=== PATIENT | female | born 1980 | race Caucasian/White ===

== ENCOUNTER 2017-02-17 19:40 | Emergency (ER) | payer MEDICAID ==
[2017-02-17 19:40] VITALS: BMI 31.3
[2017-02-17 19:48] VITALS: TEMP 97.9; O2SAT 100
[2017-02-17] MEDS ORDERED: Albuterol 0.083% Inhal Sol (2.5 mg/3 mL) UD INH STA (20:18)
[2017-02-17] MEDS ORDERED: Albuterol 0.083% Inhal Sol (2.5 mg/3 mL) UD ONE (20:34)
[2017-02-17 20:36] LABS: BASO # 0.1 K/uL (0.0-0.2); BASO % 0.8 % (0.0-2.0); EOS # 0.1 K/uL (0.0-0.7); HEMATOCRIT 35.6 % (34.0-47.0); LYMPH # 2.8 K/uL (1.0-4.3); LYMPH % 31.7 % (20.0-40.0); MEAN CELL VOLUME 87.1 fL (81.0-99.0); MEAN CORPUSCULAR HEMOGLOBIN 29.3 pg (27.0-31.0); MEAN CORPUSCULAR HGB CONC 33.7 g/dL (33.0-37.0); MEAN PLATELET VOLUME 10.4 fL (7.2-11.7); MONO # 0.6 K/uL (0.0-0.8); MONO % 6.7 % (0.0-10.0); RED CELL DISTRIBUTION WIDTH 13.5 % (11.5-14.5); WHITE BLOOD COUNT 8.8 K/uL (4.8-10.8)
[2017-02-17 20:43] LABS: CHLORIDE 100 mmol/L (98-107)
[2017-02-17 20:44] LABS: POTASSIUM 3.4 mmol/L (3.6-5.2); SODIUM 135 mmol/L (132-148)
[2017-02-17 20:46] LABS: BILIRUBIN,TOTAL < 0.1 mg/dL (0.2-1.3); CARBON DIOXIDE 26 mmol/L (22-30); GFR AFRICAN-AMERICAN > 60
[2017-02-17 20:47] LABS: ALB/GLOB RATIO 1.3 (1.0-2.1); ALKALINE PHOSPHATASE 61 U/L (38-126); ALT/SGPT 28 U/L (9-52); AST/SGOT 16 U/L (14-36); BLOOD UREA NITROGEN 14 mg/dL (7-17); CALCIUM 8.7 mg/dl (8.6-10.4); GLUCOSE,RANDOM 107 mg/dL (65-105); TOTAL PROTEIN 7.1 g/dL (6.3-8.3)
--- NOTE | 2017-02-17 21:20 | C.PDOC ---
History Of Present Illness A 36 year old female who denies Hx of SOB, presents to the ER c/o feeling SOB with dry cough and sharp chest pain of the right upper chest starting last night. Patient notes pain continued today and took Tylenol with no relief. Patient denies emotional stress, nausea, vomiting, fever, chills, trauma, or any other complaints. Time Seen by Provider: 02/17/17 20:01 Chief Complaint (Nursing): Shortness Of Breath History Per: Patient History/Exam Limitations: no limitations Onset/Duration Of Symptoms: Days Current Symptoms Are (Timing): Still Present Quality: Sharp (Chest pain) Severity: Mild Associated Symptoms: Productive Cough. denies: Fever, Chills Recent travel outside of the [place]: No Additional History Per: Patient Past Medical History Reviewed: Historical Data, Nursing Documentation, Vital Signs Vital Signs: Last Vital Signs Temp 97.9 F 02/17/17 19:44 Pulse 67 02/17/17 22:22 Resp 17 02/17/17 22:22 BP 118/75 02/17/17 22:22 Pulse Ox 100 02/17/17 22:53 - Medical History PMH: No Chronic Diseases - [facility] Procedures EPISIOTOMY (02/14/15) Family History: States: Unknown Family Hx - Social History Hx Tobacco Use: No Hx Alcohol Use: No Hx Substance Use: No Review Of Systems Except As Marked, All Systems Reviewed And Found Negative. Constitutional: Negative for: Fever, Chills, Other (Trauma) Cardiovascular: Positive for: Chest Pain Respiratory: Positive for: Cough (Dry), Shortness of Breath Gastrointestinal: Negative for: Nausea, Vomiting Neurological: Negative for: Other (Emotional stress) Physical Exam - Physical Exam Appears: Non-toxic, No Acute Distress Skin: Warm, Dry Head: Atraumatic, Normacephalic Oral Mucosa: Moist Cardiovascular: Rhythm Regular, No Murmur Respiratory: Normal Breath Sounds, No Rales, No Rhonchi, No Wheezing Gastrointestinal/Abdominal: Normal Exam, Soft, No Tenderness Neurological/Psych: Oriented x3, Normal Speech, Normal Cognition ED Course And Treatment - Laboratory Results Result Diagrams: 02/17/17 20:32 02/17/17 20:32 ECG Rhythm: Sinus Rhythm (64) ECG Interpretation: Normal O2 Sat by Pulse Oximetry: 100 (RA) Pulse Ox Interpretation: Normal - Radiology CXR: Interpreted by Me CXR Interpretation: Yes: No Acute Disease Medical Decision Making Medical Decision Making: Plans: -EKG -CXR -Albuterol -Toradol -IV fluids -Nebulizer treatment as discussed with pt labs, ekg and cxr unremarkable, no indication of acs pe as cause Pt feeling better post neb, plan treat as niall COOPER, f/u pcp this week Disposition - Disposition Disposition: HOME/ ROUTINE Disposition Time: 22:14 Condition: GOOD Additional Instructions: Follow up with you PCP this week Prescriptions: Albuterol HFA [Ventolin HFA 90 mcg/actuation (8 g)] 1 puff IH QID PRN #1 puff PRN Reason: Cough Inhaler, Assist Devices [Space Chamber Plus] 1 each MC PRN #1 spacer Instructions: Reactive Airways Disease (ED) - Clinical Impression Clinical Impression: Dyspnea - Scribe Statement The provider has reviewed the documentation as recorded by the Scribe Roberto Carlos [email or web address] All medical record entries made by the Scribe were at my direction and personally dictated by me. I have reviewed the chart and agree that the record accurately reflects my personal performance of the history, physical exam, medical decision making, and the department course for this patient. I have also personally directed, reviewed, and agree with the discharge instructions and disposition.
[2017-02-17 22:23] VITALS: BP 118/75; PULSE 67; RESP 17
--- NOTE | 2017-02-18 13:26 | RAD ---
HISTORY: SOB COMPARISON: No prior. TECHNIQUE: Chest PA and lateral FINDINGS: LUNGS: No active pulmonary disease. PLEURA: No significant pleural effusion identified. No pneumothorax apparent. CARDIOVASCULAR: Normal. OSSEOUS STRUCTURES: No significant abnormalities. VISUALIZED UPPER ABDOMEN: Normal. OTHER FINDINGS: None. IMPRESSION: No active disease. Concordant results with the preliminary interpretation rendered by the emergency department physician procedure.
--- NOTE | 2017-02-20 07:41 | CARD ---
APPROVED REPORT EKG Measurement Heart [id number] AR [id number] [id number] <Conclusion> Normal sinus rhythm Normal ECG
== END 2017-02-17 22:22 | disposition home or self-care (01) ==
LOC: C.ER 19:40
DX: R06.00 Dyspnea, unspecified (principal)
CPT/HCPCS: 71020; 80053; 83880; 84484; 85025; 85378; 96374; 99284; J1885

== ENCOUNTER 2017-02-20 08:29 | Emergency (ER) | payer MEDICAID ==
[2017-02-20 08:29] VITALS: BMI 31.3
[2017-02-20 08:50] VITALS: O2SAT 99
--- NOTE | 2017-02-20 09:57 | C.PDOC ---
History Of Present Illness 36 year old female presents to the emergency room with complaints of a sore throat, runny nose, and nonproductive cough for 2 days. Patient also reports feeling shortness of breath at night. Patient was seen in the ED 2 days ago; blood work, EKG, and CXR done and patient discharged home with Albuterol inhaler. Patient has not yet followed up with PMD. She denies fever, chest pain , nausea, vomiting, diarrhea, headache, dysuria/hematuria. Time Seen by Provider: 02/20/17 09:09 Chief Complaint (Nursing): Cough, Cold, Congestion History Per: Patient History/Exam Limitations: no limitations Onset/Duration Of Symptoms: Days (2) Current Symptoms Are (Timing): Still Present Location Of Pain: Throat Sick Contacts (Context): None Associated Symptoms: Sore Throat, Cough. denies: Fever, Chills, Sputum, Nausea , Vomiting, Diarrhea Ear Symptoms: Bilateral: None Severity: Mild Past Medical History Reviewed: Historical Data, Nursing Documentation, Vital Signs Vital Signs: Last Vital Signs Temp 99 F 02/20/17 10:17 Pulse 96 H 02/20/17 10:17 Resp 16 02/20/17 10:17 BP 110/72 02/20/17 10:17 Pulse Ox 99 02/20/17 11:45 - Medical History PMH: No Chronic Diseases - [facility] Procedures EPISIOTOMY (02/14/15) Family History: States: No Known Family Hx - Social History Hx Tobacco Use: No Hx Alcohol Use: No Hx Substance Use: No - Immunization History Hx Tetanus Toxoid Vaccination: No Hx Influenza Vaccination: No Hx Pneumococcal Vaccination: No Review Of Systems Except As Marked, All Systems Reviewed And Found Negative. Constitutional: Negative for: Fever, Chills ENT: Positive for: Nose Discharge (Runny nose), Throat Pain (Sore throat). Negative for: Ear Pain, Nose Congestion Cardiovascular: Negative for: Chest Pain, Palpitations Respiratory: Positive for: Cough. Negative for: Shortness of Breath, Sputum Gastrointestinal: Negative for: Nausea, Vomiting, Abdominal Pain, Diarrhea Neurological: Negative for: Headache, Dizziness Physical Exam - Physical Exam Appears: Well, Non-toxic, Other (Speaks in full sentences. Coughs Occasionally. ) Skin: Normal Color, Warm, Dry, No Rash Eye(s): bilateral: Normal Inspection Ear(s): Bilateral: Normal Nose: Normal, No Discharge, No Tenderness Oral Mucosa: Moist Throat: Erythema (Mild), No Exudate, No Drooling Neck: Normal ROM, Supple Cardiovascular: Rhythm Regular Respiratory: No Rales, No Rhonchi, Wheezing (Scant expiratory wheezing B/L) Gastrointestinal/Abdominal: Normal Exam, Bowel Sounds, Soft, No Tenderness Extremity: Normal ROM, No Tenderness Neurological/Psych: Oriented x3 ED Course And Treatment O2 Sat by Pulse Oximetry: 99 (RA) Pulse Ox Interpretation: Normal Progress Note: Patient given PO Prednisone and Tessalon in ED. Reevaluation Time: 10:00 Reassessment Condition: Improved (On reassessment, patient states she feels better. On exam, she has good air entry B/L without wheezing/accessory muscle use. Pox 99% on RA. Patient given Rxs for prednisone and tessalon, instructed to follow up with PMD/clinic in 1-2 days. She understands she should return to ED if symptoms worsen.) Disposition Counseled Patient/Family Regarding: Diagnosis, Need For Followup, Rx Given - Disposition Referrals: Carly Summers MD [Staff Provider] - Disposition: HOME/ ROUTINE Disposition Time: 10:00 Condition: STABLE Additional Instructions: FOLLOW UP WITH YOUR DOCTOR IN 1-2 DAYS USE MEDICATIONS DIRECTED RETURN TO ER IF SYMPTOMS WORSEN Prescriptions: Benzonatate [Tessalon Perles] 100 mg PO BID PRN #15 sgl PRN Reason: Cough predniSONE [predniSONE Tab] 40 mg PO DAILY #6 tab Instructions: Upper Respiratory Infection (ED), Bronchospasm (DC) Print Language: KISWAHILI - POA Present On Arrival: None - Clinical Impression Clinical Impression: Bronchospasm, Upper respiratory infection - Scribe Statement The provider has reviewed the documentation as recorded by the Gideonibjennifer Brady All medical record entries made by the Gideonibjennifer were at my direction and personally dictated by me. I have reviewed the chart and agree that the record accurately reflects my personal performance of the history, physical exam, medical decision making, and the department course for this patient. I have also personally directed, reviewed, and agree with the discharge instructions and disposition.
[2017-02-20 10:17] VITALS: BP 110/72; PULSE 96; RESP 16; TEMP 99
== END 2017-02-20 10:17 | disposition home or self-care (01) ==
LOC: C.ER 08:29
DX: J98.01 Acute bronchospasm (principal); J06.9 Acute upper respiratory infection, unspecified

== ENCOUNTER 2018-01-17 17:07 | Emergency (ER) | payer MEDICAID ==
[2018-01-17 17:07] VITALS: BMI 31.3
[2018-01-17 17:16] VITALS: BP 123/79; PULSE 79; RESP 20; TEMP 98; O2SAT 100
[2018-01-17] MEDS ORDERED: Naproxen 550 mg Tab PO STA (17:29)
[2018-01-17] MEDS ORDERED: Naproxen 550 mg Tab PO ONE (17:38)
--- NOTE | 2018-01-17 17:52 | C.PDOC ---
History Of Present Illness Patient presents to ED c/o buttock/coccygeal pain after she fell onto her buttocks while going down the stairs approx 3 hrs ago. She denies head injury or LOC, abdominal pain, urinary retention, bowel/bladder incontinence, sensory changes. Patient took 1 ibuprofen 200mg right after the fall. Time Seen by Provider: 01/17/18 17:21 Chief Complaint (Nursing): Back Pain History Per: Patient History/Exam Limitations: no limitations Onset/Duration Of Symptoms: Hrs Current Symptoms Are (Timing): Still Present Quality Of Discomfort: "Pain" Severity: Moderate Associated Symptoms: None. denies: Incontinence, New Weakness, New Numbness Exacerbating Factor(s): Movement Past Medical History Reviewed: Historical Data, Nursing Documentation, Vital Signs Vital Signs: Last Vital Signs Temp 98 F 01/17/18 17:14 Pulse 79 01/17/18 17:14 Resp 20 01/17/18 19:20 BP 123/79 01/17/18 17:14 Pulse Ox 100 01/17/18 18:20 - Medical History PMH: No Chronic Diseases - [facility] Procedures EPISIOTOMY (02/14/15) Family History: States: No Known Family Hx - Social History Hx Tobacco Use: No Hx Alcohol Use: No Hx Substance Use: No - Immunization History Hx Tetanus Toxoid Vaccination: No Hx Influenza Vaccination: No Hx Pneumococcal Vaccination: No Review Of Systems Except As Marked, All Systems Reviewed And Found Negative. Constitutional: Negative for: Fever, Chills Cardiovascular: Negative for: Chest Pain, Palpitations Respiratory: Negative for: Cough, Shortness of Breath Gastrointestinal: Negative for: Nausea, Vomiting, Abdominal Pain, Diarrhea Musculoskeletal: Positive for: Back Pain (low back/coccygeal pain ) Neurological: Negative for: Weakness, Numbness, Headache, Dizziness Physical Exam - Physical Exam Appears: Well, Non-toxic, In Acute Distress (in mild to moderate pain ) Skin: Normal Color, Warm, Dry, No Rash Head: Atraumatic, Normacephalic Eye(s): bilateral: Normal Inspection Oral Mucosa: Moist Neck: Normal, Normal ROM, No Midline Cervical Tenderness, No Paracervical Tenderness, No Step Off Deformity, Supple Cardiovascular: Rhythm Regular Respiratory: Normal Breath Sounds, No Rales, No Rhonchi, No Wheezing Gastrointestinal/Abdominal: Normal Exam, Bowel Sounds, Soft, No Tenderness Back: Normal Inspection, No CVA Tenderness, No Vertebral Tenderness, No Decreased ROM, Other (TTP at coccyx and sacral area, no ecchymosis/swelling/ erthema) Extremity: Normal ROM, No Deformity Extremity: Bilateral: Normal Color And Temperature, Normal ROM Neurological/Psych: Oriented x3, Normal Motor, Normal Sensation Gait: Steady ED Course And Treatment O2 Sat by Pulse Oximetry: 100 (RA) Pulse Ox Interpretation: Normal - Other Rad LS spine Xray X-Ray: Interpreted by Me, Viewed By Me (no fractures/listhesis) sacrum/coccyx Xray X-Ray: Interpreted by Me, Viewed By Me (cocygeal nondisplaced fracture) Progress Note: Patient given PO Naprosyn for pain. Upreg POC ordered and reviewed. Xrays of sacrum/coccyx and LS spine ordered and reviewed. Reevaluation Time: 19:15 Reassessment Condition: Improved (Patient reassessed, is resting comfortably and states pain has improved. Patient given Rxs for Naprosyn and Tylenol #3, and was instructed to buy donut pillow at pharmacy for sitting. She was instructed to follow up with PMD/clinic in 1-2 days, and she understands she should return to ED if her symptoms worsen. Instructions also given to patient 's by phone (due to patient's limited Bengali).) Disposition Counseled Patient/Family Regarding: Studies Performed, Diagnosis, Need For Followup, Rx Given - Disposition Referrals: [facility] [Outside] Disposition: HOME/ ROUTINE Disposition Time: 19:20 Condition: STABLE Additional Instructions: FOLLOW UP WITH YOUR DOCTOR IN 1-2 DAYS USE MEDICATIONS FOR PAIN NEEDED RETURN TO ER IF SYMPTOMS WORSEN BUY DONUT PILLOW CUSHION FOR SITTING AT PHARMACY Prescriptions: Acetaminophen with Codeine [Tylenol with Codeine #3 Tablet] 1 each PO Q6 PRN # 15 tablet PRN Reason: pain Naproxen [Naprosyn] 1 tab PO BID PRN #25 tab PRN Reason: Pain Instructions: Coccyx Fracture (DC) Forms: [employer] (Bengali) Print Language: TURKISH - POA Present On Arrival: None - Clinical Impression Clinical Impression: Fractured coccyx
--- NOTE | 2018-01-17 18:46 | RAD ---
PROCEDURE: Radiographs of the Sacrum and Coccyx HISTORY: coccygeal pain after fall COMPARISON: None available. TECHNIQUE: Frontal and lateral views of the sacrum and coccyx FINDINGS: BONES: Sacrum is unremarkable in views submitted however images of the coccyx reveal questionable cortical discontinuity posteriorly and a nondisplaced fracture is not excluded. SACROILIAC JOINTS: Unremarkable. OTHER FINDINGS: None. IMPRESSION: Potential nondisplaced coccyx fracture with remainder the examination unremarkable.
--- NOTE | 2018-01-17 18:46 | RAD ---
PROCEDURE: Radiographs of the Lumbar Spine. HISTORY: low back pain after fallq COMPARISON: No prior. FINDINGS: BONES: Normal alignment. No listhesis. No fracture. DISC SPACES: Unremarkable. OTHER FINDINGS: Incidental intrauterine device identified within the pelvis soft tissues. IMPRESSION: Unremarkable radiographs of the lumbar spine.
== END 2018-01-17 19:20 | disposition home or self-care (01) ==
LOC: C.ER 17:07
DX: S32.2XXA Fracture of coccyx, initial encounter for closed fracture (principal); W10.9XXA Fall (on) (from) unspecified stairs and steps, initial encounter

== ENCOUNTER 2018-04-23 17:26 | Emergency (ER) | payer MEDICAID ==
[2018-04-23 17:28] VITALS: BMI 31.3
[2018-04-23 18:22] VITALS: RESP 18
[2018-04-23 19:28] LABS: BASO # 0.1 K/uL (0.0-0.2); BASO % 0.9 % (0.0-2.0); EOS # 0.1 K/uL (0.0-0.7); EOS % 1.1 % (0.0-4.0); LYMPH # 2.8 K/uL (1.0-4.3); LYMPH % 25.5 % (20.0-40.0); MEAN CELL VOLUME 83.2 fL (81.0-99.0); MEAN CORPUSCULAR HEMOGLOBIN 27.9 pg (27.0-31.0); MEAN CORPUSCULAR HGB CONC 33.6 g/dL (33.0-37.0); MEAN PLATELET VOLUME 10.4 fL (7.2-11.7); MONO # 0.9 K/uL (0.0-0.8); MONO % 7.7 % (0.0-10.0); NEUT # 7.1 K/uL (1.8-7.0); NEUT % 64.8 % (50.0-75.0); RBC 4.31 Mil/uL (3.80-5.20)
[2018-04-23 19:40] LABS: ALB/GLOB RATIO 1.3 (1.0-2.1); ALBUMIN 4.2 g/dL (3.5-5.0); ALT/SGPT 37 U/L (9-52); AST/SGOT 17 U/L (14-36); BLOOD UREA NITROGEN 14 mg/dL (7-17); GFR AFRICAN-AMERICAN > 60; GFR NON-AFRICAN AMERICAN > 60
[2018-04-23 19:47] LABS: URINE BACTERIA RARE (<OCC); URINE BILIRUBIN NEGATIVE (NEGATIVE); URINE BLOOD NEGATIVE (NEGATIVE); URINE CLARITY Clear (Clear); URINE COLOR Yellow (YELLOW); URINE GLUCOSE (UA) NORMAL (Normal); URINE LEUKOCYTE ESTERASE 2+ Leu/uL (Negative); URINE PROTEIN NEGATIVE (NEGATIVE); URINE UROBILINOGEN NORMAL mg/dL (0.2-1.0)
[2018-04-23 19:49] LABS: SQUAMOUS EPITHIAL 3 /hpf (0-5)
[2018-04-23 19:54] LABS: B-TYPE NATRIURETIC PEPTIDE 36.1 pg/mL (0-450)
[2018-04-23 20:45] VITALS: BP 128/88; PULSE 66; TEMP 98.1; O2SAT 100
--- NOTE | 2018-04-23 21:17 | C.PDOC ---
History Of Present Illness 37 year old female presents to the ER with a complaint of headache, nausea, palpitations, and weakness to the legs after getting some bad news this morning. Denies chest pain, SOB, or Hx of cardiac problems. Time Seen by Provider: 04/23/18 18:49 Chief Complaint (Nursing): Dizziness/Lightheaded History Per: Patient History/Exam Limitations: no limitations Onset/Duration Of Symptoms: Hrs Current Symptoms Are (Timing): Still Present Seizure Or Post-ictal Symptoms: None Fall Associated With With Symptoms: No Recent travel outside of the [place]: No Past Medical History Reviewed: Historical Data, Nursing Documentation, Vital Signs Vital Signs: Last Vital Signs Temp 98.1 F 04/23/18 20:44 Pulse 66 04/23/18 20:44 Resp 18 04/23/18 20:44 BP 128/88 04/23/18 20:44 Pulse Ox 100 04/23/18 21:17 - [facility] Procedures EPISIOTOMY (02/14/15) Family History: States: Unknown Family Hx - Social History Hx Tobacco Use: No Hx Alcohol Use: No Hx Substance Use: No - Immunization History Hx Tetanus Toxoid Vaccination: No Hx Influenza Vaccination: No Hx Pneumococcal Vaccination: No Review Of Systems Constitutional: Positive for: Weakness. Negative for: Fever, Chills Cardiovascular: Positive for: Palpitations. Negative for: Chest Pain Respiratory: Negative for: Cough, Shortness of Breath Gastrointestinal: Positive for: Nausea. Negative for: Vomiting Neurological: Positive for: Headache Physical Exam - Physical Exam Appears: Non-toxic, Other (Obese, female) Skin: Normal Color, Warm, Dry Head: Atraumatic, Normacephalic Eye(s): bilateral: Normal Inspection Oral Mucosa: Moist Neck: Normal, Supple Chest: Symmetrical, No Tenderness Cardiovascular: Rhythm Regular Respiratory: Normal Breath Sounds, No Rales, No Rhonchi, No Wheezing Gastrointestinal/Abdominal: Soft, No Tenderness Back: No CVA Tenderness Extremity: Normal ROM (x4) Neurological/Psych: Oriented x3, Normal Speech ED Course And Treatment - Laboratory Results Result Diagrams: 04/23/18 19:25 04/23/18 19:25 Lab Interpretation: Normal (trop neg. UA neg.) Urine POC: Negative ECG: Interpreted By Me ECG Rhythm: Sinus Rhythm ECG Interpretation: Normal Rate From EC O2 Sat by Pulse Oximetry: 100 Pulse Ox Interpretation: Normal - Radiology CXR: Interpreted by Me CXR Interpretation: Yes: No Acute Disease Progress Note: EKG, blood work, obstructive series, and urinalysis ordered. Pepcid and toradol administered. Reevaluation Time: 21:16 Reassessment Condition: Improved Medical Decision Making Medical Decision Making: emotional reaction to stressor of bad news this morning normal workup Disposition Doctor Will See Patient In The: Office Counseled Patient/Family Regarding: Studies Performed, Diagnosis - Disposition Referrals: [facility] [Outside] [facility] [Outside] [facility] [Outside] Disposition: HOME/ ROUTINE Disposition Time: 21:16 Condition: GOOD Additional Instructions: normal outpatient follow-up in our outpatient psych services as needed. Instructions: Anxiety, Adult (DC) Forms: [employer] (Georgian) - Clinical Impression Clinical Impression: Anxiety - Scribe Statement The provider has reviewed the documentation as recorded by the Scribe Chava Maloney All medical record entries made by the Scribe were at my direction and personally dictated by me. I have reviewed the chart and agree that the record accurately reflects my personal performance of the history, physical exam, medical decision making, and the department course for this patient. I have also personally directed, reviewed, and agree with the discharge instructions and disposition.
--- NOTE | 2018-04-24 10:13 | RAD ---
Date of service: 04/23/2018 PROCEDURE: Radiographs of the chest and abdomen (obstructive series) HISTORY: abd discomfort COMPARISON: No prior. TECHNIQUE: AP radiograph of the chest, with upright and supine radiographs of the abdomen. FINDINGS: CHEST: Lungs: The lungs are well inflated and clear. Cardiovascular: Normal size heart. No pulmonary vascular congestion. Pleura: No pleural fluid. No pneumothorax. Other findings: None. ABDOMEN AND PELVIS: Bowel: There is large amount of stool in the colon. No evidence of mechanical obstruction. Free air: None. Bones: Unremarkable. Other findings: An IUD overlies the pelvis. IMPRESSION: Constipation. No evidence of bowel obstruction. Clear lungs.
--- NOTE | 2018-04-25 12:19 | CARD ---
APPROVED REPORT Date of service: 04/23/2018 EKG Measurement Heart [id number] MA 168P59 [id number] <Conclusion> Normal sinus rhythm with sinus arrhythmia Normal ECG
== END 2018-04-23 21:27 | disposition home or self-care (01) ==
LOC: C.ER 17:26
DX: F41.9 Anxiety disorder, unspecified (principal)
CPT/HCPCS: 74022; 80053; 81001; 83880; 84484; 84703; 85025; 93005; 96374; 96375; 99285; J1885

== ENCOUNTER 2018-06-05 22:35 | Emergency (ER) | payer MEDICAID ==
[2018-06-05 22:36] VITALS: BMI 31.3
[2018-06-06] MEDS ORDERED: Azithromycin 500 MG in Sodium Chloride 0.9% 250 ML IVPB STA (00:14)
[2018-06-06] MEDS ORDERED: Albuterol-Ipratrop 3 mg / 0.5 (3 ml) UD INH STA (00:18)
--- NOTE | 2018-06-06 00:23 | C.PDOC ---
History Of Present Illness 37yo female, comes to ER with complaints of chest pain x 2 days. She also reports right neck and arm pain, radiating to her right shoulder. Patient has a productive cough with green sputum. She denies associated fever, chills, or shortness of breath. No other complaints. Medications reviewed. No allergies. Time Seen by Provider: 06/05/18 22:57 Chief Complaint (Nursing): Chest Pain History Per: Patient History/Exam Limitations: no limitations Onset/Duration Of Symptoms: Days (2) Current Symptoms Are (Timing): Still Present Quality: "Pain" Associated Symptoms: denies: Nausea, Dyspnea, Diaphoresis, Syncope Additional History Per: Patient Past Medical History Reviewed: Historical Data, Nursing Documentation, Vital Signs Vital Signs: Last Vital Signs Temp 98.7 F 06/06/18 01:46 Pulse 74 06/06/18 01:46 Resp 18 06/06/18 01:46 BP 111/74 06/06/18 01:46 Pulse Ox 97 06/06/18 01:55 - Medical History PMH: No Chronic Diseases Surgical History: No Surg Hx - [facility] Procedures EPISIOTOMY (02/14/15) Family History: States: No Known Family Hx - Social History Hx Tobacco Use: No Hx Alcohol Use: No Hx Substance Use: No - Immunization History Hx Tetanus Toxoid Vaccination: No Hx Influenza Vaccination: No Hx Pneumococcal Vaccination: No Review Of Systems Except As Marked, All Systems Reviewed And Found Negative. Constitutional: Negative for: Fever, Chills ENT: Negative for: Ear Pain, Ear Discharge Cardiovascular: Positive for: Chest Pain Respiratory: Positive for: Cough, Sputum. Negative for: Shortness of Breath Gastrointestinal: Negative for: Nausea, Vomiting, Abdominal Pain Genitourinary: Negative for: Dysuria Musculoskeletal: Positive for: Shoulder Pain (right), Arm Pain (right). Negative for: Back Pain Neurological: Negative for: Weakness, Numbness Physical Exam - Physical Exam Appears: Non-toxic, No Acute Distress Skin: Normal Color, Warm Head: Atraumatic, Normacephalic Eye(s): bilateral: Normal Inspection, PERRL, EOMI Nose: Normal Tongue: Normal Appearing Lips: Normal Appearing Teeth: Normal Dentition Neck: Normal, Supple Chest: Symmetrical Cardiovascular: Rhythm Regular Respiratory: Wheezing (expiratory) Gastrointestinal/Abdominal: Normal Exam, Soft Back: Normal Inspection, No CVA Tenderness, No Vertebral Tenderness, No Paraspinal Tenderness Extremity: Normal ROM, No Pedal Edema, No Calf Tenderness Neurological/Psych: Oriented x3, Normal Speech, Normal Cognition, Normal Motor, Normal Sensation ED Course And Treatment - Laboratory Results Result Diagrams: 06/06/18 00:26 06/06/18 00:26 ECG: Interpreted By Me, Viewed By Me ECG Rhythm: Sinus Rhythm Interpretation Of ECG: CO 170. QRS 84. QT/QTc 376/417. No ischemic changes Rate From EC O2 Sat by Pulse Oximetry: 97 (RA) Pulse Ox Interpretation: Normal Medical Decision Making Medical Decision Making: Plan: * Labs * CXR * Duoneb 6ml INH * Solumedrol 125mg IVP * Zithromax 500mg IVPB 0055 CXR shows retrocardiac fullness No infiltrates Disposition Counseled Patient/Family Regarding: Diagnosis - Disposition Referrals: [facility] [place] [facility] [Outside] [facility] [Outside] [facility] [Outside] Disposition: HOME/ ROUTINE Disposition Time: 01:54 Condition: GOOD Prescriptions: Albuterol HFA [Ventolin HFA 90 mcg/actuation (8 g)] 2 puff IH [id number] 30 Days # 1 puff Azithromycin 250 mg PO DAILY 4 Days #4 tablet predniSONE [predniSONE Tab] 60 mg PO DAILY 5 Days #15 tab Forms: [employer] (Bahamian) - Clinical Impression Clinical Impression: Pleuritic pain, Bronchitis - Scribe Statement The provider has reviewed the documentation as recorded by the Nino Smith Provider Attestation: All medical record entries made by the Nino were at my direction and personally dictated by me. I have reviewed the chart and agree that the record accurately reflects my personal performance of the history, physical exam, medical decision making, and the department course for this patient. I have also personally directed, reviewed, and agree with the discharge instructions and disposition.
[2018-06-06] MEDS ORDERED: Azithromycin 500mg/250ML NS 500 MG/250 ML BAG IVPB ONE (00:27)
[2018-06-06 00:28] LABS: BASO # 0.1 K/uL (0.0-0.2); BASO % 0.8 % (0.0-2.0); EOS # 0.1 K/uL (0.0-0.7); HEMOGLOBIN 11.1 g/dL (11.0-16.0); LYMPH # 2.9 K/uL (1.0-4.3); LYMPH % 42.3 % (20.0-40.0); MEAN CELL VOLUME 82.9 fL (81.0-99.0); MEAN CORPUSCULAR HEMOGLOBIN 27.8 pg (27.0-31.0); MEAN CORPUSCULAR HGB CONC 33.6 g/dL (33.0-37.0); MEAN PLATELET VOLUME 10.8 fL (7.2-11.7); MONO # 0.5 K/uL (0.0-0.8); NEUT # 3.2 K/uL (1.8-7.0); NEUT % 46.9 % (50.0-75.0); RBC 3.99 Mil/uL (3.80-5.20); RED CELL DISTRIBUTION WIDTH 14.5 % (11.5-14.5); WHITE BLOOD COUNT 6.8 K/uL (4.8-10.8)
[2018-06-06] MEDS ORDERED: Albuterol-Ipratrop 3 mg / 0.5 (3 ml) UD ONE (00:36)
[2018-06-06 00:43] LABS: ALB/GLOB RATIO 1.3 (1.0-2.1); ALBUMIN 3.6 g/dL (3.5-5.0); ALT/SGPT 30 U/L (9-52); AST/SGOT 12 U/L (14-36); BLOOD UREA NITROGEN 12 mg/dL (7-17); CALCIUM 8.8 mg/dl (8.6-10.4); GFR NON-AFRICAN AMERICAN > 60
[2018-06-06 01:47] VITALS: BP 111/74; PULSE 74; RESP 18; TEMP 98.7
[2018-06-06 01:55] VITALS: O2SAT 97
--- NOTE | 2018-06-06 09:23 | RAD ---
Date of service: 06/06/2018 HISTORY: SOB COMPARISON: Comparison made with chest radiograph dated 02/17/2017. TECHNIQUE: Chest PA and lateral FINDINGS: LUNGS: Poor inspiration with low lung volumes, crowded bronchovascular markings and mild bibasilar atelectasis. PLEURA: No significant pleural effusion identified. No pneumothorax apparent. CARDIOVASCULAR: Normal. OSSEOUS STRUCTURES: No significant abnormalities. VISUALIZED UPPER ABDOMEN: Normal. OTHER FINDINGS: None. IMPRESSION: Poor inspiration with low lung volumes, crowded bronchovascular markings and mild bibasilar atelectasis.
--- NOTE | 2018-06-07 01:51 | CARD ---
APPROVED REPORT Date of service: 06/05/2018 EKG Measurement Heart [id number] IN 170P54 [id number] <Conclusion> Normal sinus rhythm Cannot rule out Anterior infarct, age undetermined Abnormal ECG
== END 2018-06-06 02:13 | disposition home or self-care (01) ==
LOC: C.ER 22:35
DX: J40 Bronchitis, not specified as acute or chronic (principal); R07.81 Pleurodynia
CPT/HCPCS: 71046; 80053; 85025; 87040; 93005; 96365; 96375; 99285; J0456; J2930; J7050

== ENCOUNTER 2019-02-02 21:34 | Emergency (ER) | payer MEDICAID ==
[2019-02-02 21:34] VITALS: BMI 31.3
[2019-02-02] MEDS ORDERED: Sodium Chloride 0.9% 1,000 ML IV ONE (22:18)
[2019-02-02] MEDS ORDERED: Sodium Chloride 0.9% 1,000 ML ONE (22:25)
[2019-02-02 22:27] LABS: BASO # 0.1 K/uL (0.0-0.2); BASO % 0.9 % (0.0-2.0); EOS # 0.2 K/uL (0.0-0.7); EOS % 1.8 % (0.0-4.0); HEMOGLOBIN 11.5 g/dL (11.0-16.0); LYMPH # 2.8 K/uL (1.0-4.3); LYMPH % 28.9 % (20.0-40.0); MEAN CELL VOLUME 85.5 fL (81.0-99.0); MEAN CORPUSCULAR HEMOGLOBIN 28.4 pg (27.0-31.0); MEAN CORPUSCULAR HGB CONC 33.2 g/dL (33.0-37.0); MEAN PLATELET VOLUME 10.8 fL (7.2-11.7); MONO # 0.7 K/uL (0.0-0.8); NEUT # 5.9 K/uL (1.8-7.0); NEUT % 61.4 % (50.0-75.0); NRBC % 0.1 % (0.0-2.0); RBC 4.06 Mil/uL (3.80-5.20); RED CELL DISTRIBUTION WIDTH 13.9 % (11.5-14.5); WHITE BLOOD COUNT 9.5 K/uL (4.8-10.8)
[2019-02-02 22:28] LABS: SQUAMOUS EPITHIAL 1 /hpf (0-5); URINE BILIRUBIN NEGATIVE (NEGATIVE); URINE BLOOD NEGATIVE (NEGATIVE); URINE CLARITY Clear (Clear); URINE COLOR Yellow (YELLOW); URINE GLUCOSE (UA) NORMAL (Normal); URINE LEUKOCYTE ESTERASE NEG Leu/uL (Negative); URINE PROTEIN NEGATIVE (NEGATIVE); URINE UROBILINOGEN NORMAL mg/dL (0.2-1.0)
[2019-02-02] MEDS ORDERED: Iodixanol 320 mg/ml 150 ml Bottle IV ONE (22:32)
[2019-02-02 22:37] LABS: ALB/GLOB RATIO 1.5 (1.0-2.1); ALT/SGPT 19 U/L (9-52); AST/SGOT 15 U/L (14-36); BLOOD UREA NITROGEN 15 mg/dL (7-17); GFR NON-AFRICAN AMERICAN > 60
--- NOTE | 2019-02-03 00:06 | C.PDOC ---
History Of Present Illness 38 year old female presents with RLQ pain since this morning associated with one episode of vomiting. She states the pain is constant, radiates to the right flank, with no exacerbating or alleviating factors. Patient similar pain last week that was better after drinking water, however, today pain did not get better after drinking water. She currently reports some dizziness but otherwise denies fever, diarrhea, urinary complaints, syncope, vaginal bleeding, or vaginal discharge. Patient just finish normal menstrual period. Time Seen by Provider: 02/02/19 21:55 Chief Complaint (Nursing): Abdominal Pain History Per: Patient History/Exam Limitations: no limitations Onset/Duration Of Symptoms: Hrs Current Symptoms Are (Timing): Still Present Location Of Pain/Discomfort: RLQ Quality Of Discomfort: Unable To Describe Associated Symptoms: Vomiting. denies: Fever, Diarrhea, Urinary Symptoms, Other (Vaginal discharge) Exacerbating Factors: None Alleviating Factors: None Recent travel outside of the [place]: No Abnormal Vaginal Bleeding: No Past Medical History Reviewed: Historical Data, Nursing Documentation, Vital Signs Vital Signs: Last Vital Signs Temp 97.6 F 02/02/19 23:59 Pulse 65 02/02/19 23:59 Resp 16 02/02/19 23:59 BP 103/65 02/02/19 23:59 Pulse Ox 99 02/02/19 23:59 - [facility] Procedures EPISIOTOMY (02/14/15) Family History: States: Unknown Family Hx - Social History Hx Tobacco Use: No Hx Alcohol Use: No Hx Substance Use: No - Immunization History Hx Tetanus Toxoid Vaccination: No Hx Influenza Vaccination: No Hx Pneumococcal Vaccination: No Review Of Systems Constitutional: Negative for: Fever, Chills Cardiovascular: Negative for: Chest Pain, Palpitations Respiratory: Negative for: Cough, Shortness of Breath Gastrointestinal: Positive for: Vomiting, Abdominal Pain. Negative for: Diarrhea Genitourinary: Negative for: Dysuria, Hematuria, Vaginal Discharge, Vaginal Bleeding Musculoskeletal: Negative for: Back Pain Skin: Negative for: Rash Neurological: Negative for: Weakness, Numbness Physical Exam - Physical Exam Appears: Non-toxic Skin: Normal Color, Warm Head: Atraumatic, Normacephalic Eye(s): bilateral: Normal Inspection, PERRL, EOMI Oral Mucosa: Moist Neck: Normal, Supple Chest: Symmetrical, No Tenderness Cardiovascular: Rhythm Regular Respiratory: Normal Breath Sounds, No Rales, No Rhonchi, No Wheezing Gastrointestinal/Abdominal: Soft, Tenderness (RLQ), No Guarding, No Rebound Back: Other (right flank tenderness) Neurological/Psych: Oriented x3, Normal Speech ED Course And Treatment - Laboratory Results Result Diagrams: 02/02/19 22:10 02/02/19 22:10 Lab Results: Total Bilirubin 0.2 mg/dL (0.2-1.3) 02/02/19 22:10 AST 15 U/L (14-36) 02/02/19 22:10 ALT 19 U/L (9-52) 02/02/19 22:10 Alkaline Phosphatase 60 U/L (38-126) 02/02/19 22:10 Total Protein 6.8 g/dL (6.3-8.3) 02/02/19 22:10 Albumin 4.0 g/dL (3.5-5.0) 02/02/19 22:10 Globulin 2.7 gm/dL (2.2-3.9) 02/02/19 22:10 Albumin/Globulin Ratio 1.5 (1.0-2.1) 02/02/19 22:10 Urine Color Yellow (YELLOW) 02/02/19 22:10 Urine Clarity Clear (Clear) 02/02/19 22:10 Urine pH 7.0 (5.0-8.0) 02/02/19 22:10 Ur Specific [place] 1.012 (1.003-1.030) 02/02/19 22:10 Urine Protein Negative mg/dL (NEGATIVE) 02/02/19 22:10 Urine Glucose (UA) Normal mg/dL (Normal) 02/02/19 22:10 Urine Ketones Negative mg/dL (NEGATIVE) 02/02/19 22:10 Urine Blood Negative (NEGATIVE) 02/02/19 22:10 Urine Nitrate Negative (NEGATIVE) 02/02/19 22:10 Urine Bilirubin Negative (NEGATIVE) 02/02/19 22:10 Urine Urobilinogen Normal mg/dL (0.2-1.0) 02/02/19 22:10 Ur Leukocyte Esterase Neg Carrie/uL (Negative) 02/02/19 22:10 Urine WBC (Auto) < 1 /hpf (0-5) 02/02/19 22:10 Ur Squamous Epith Cells 1 /hpf (0-5) 02/02/19 22:10 Urine HCG, Qual Negative (NEGATIVE) 02/02/19 22:10 Urine HCG, Qual Negative (NEGATIVE) 02/02/19 22:10 O2 Sat by Pulse Oximetry: 99 (room air) Pulse Ox Interpretation: Normal - CT Scan/US CT abd/pel Other Rad Studies (CT/US): Read By Radiologist, Radiology Report Reviewed CT/US Interpretation: EXAM: CT Abdomen and Pelvis with IV contrast. CLINICAL HISTORY: RLQ abd pain. TECHNIQUE: Axial computed tomography images of the abdomen and pelvis with intravenous contrast. 0.00 mGy-cm. CONTRAST: With; VISI 320 100MLS. COMPARISON: None provided. FINDINGS: LUNG BASES: The lung bases appear clear. No pleural effusions are seen. LIVER: Unremarkable. GALLBLADDER AND BILE DUCTS: The gallbladder appears normal in size and configuration. A large solitary 2.3 cm cholelith is identified. No biliary ductal dilatation is evident. PANCREAS: Unremarkable. SPLEEN: There is splenomegaly noted. The spleen measured approximately 17.0 x 5.1 cm in cranial caudal and transverse dimensions respectively. ADRENAL GLANDS: Unremarkable. KIDNEYS, URETERS, AND BLADDER: The kidneys appear within normal limits. There is no hydronephrosis or hydroureter. No urinary calculi are seen. The urinary bladder appeared normal in size and configuration. STOMACH AND BOWEL: Unremarkable appearance of the stomach. No evidence of bowel obstruction. There is mucosal wall thickening of the small intestinal tract with fluid noted in the lumen thought compatible with diffuse enteritis. Infectious or inflammatory etiologies are thought most likely. No evidence suggesting colitis. APPENDIX: No evidence of acute appendicitis on CT examination. PERITONEUM: No free fluid. No free air. LYMPH NODES: No lymphadenopathy is evident. Multiple non- enlarged mesenteric lymph nodes are seen which could be compatible with me senteric adenitis. REPRODUCTIVE: An IUD is noted within the uterine canal. Otherwise, unremarkable as visualized. VASCULATURE: No evidence of abdominal aortic aneurysm. BONES: No aggressive appearing osseous lesion. No acute osseous pathology evident. IMPRESSION: 1. A solitary 2.3 cm cholelith is identified in the gallbladder. 2. Splenomegaly. 3. Evidence of diffuse enteritis. 4. Evidence of mesenteric adenitis. 5. An IUD resides in satisfactory position. Medical Decision Making Medical Decision Making: Plan: * CT abd/pel * Blood work * UA * IV fluids * Toradol * Zofran Lab and CT results reviewed and discussed with patient. Advised fluids, likely viral gastroenteritis. Also advised outpatient followup for gallstones. Patient with no leukocytosis or fever. No vomiting in the ED. Stable for discharge home. Disposition - Disposition Disposition: HOME/ ROUTINE Disposition Time: 00:50 Condition: STABLE Additional Instructions: KYE KWON, thank you for letting us take care of you today. Your provider was Kathi Calix MD and you were treated for SIDE PAIN/HEADACHE. The emergency medical care you received today was directed at your acute symptoms. If you were prescribed any medication, please fill it and take as directed. It may take several days for your symptoms to resolve. Return to the Emergency Department if your symptoms worsen, do not improve, or if you have any other problems. Please contact your doctor or call one of the physicians/clinics you have been referred to that are listed on the Patient Visit Information form that is included in your discharge packet. Bring any paperwork you were given at discharge with you along with any medications you are taking to your follow up visit. Our treatment cannot replace ongoing medical care by a primary care provi randy outside of the emergency department. Thank you for allowing the [facility] team to be part of your care today. If you had an X-Ray or CT scan: A Radiologist will review the ED reading if any change in treatment is needed we will contact you. If you had a blood, urine, or wound culture: It will take several days for the results, if any change in treatment is needed we will contact you. If you had an STI test: It will take 48 hours for the results. Please call after 1 week if you have not heard back. Instructions: Viral Gastroenteritis, Adult (DC), Gallstones (DC) Forms: [employer] (Sinhala) - Clinical Impression Clinical Impression: Abdominal pain, Gastroenteritis, Cholelithiasis - Scribe Statement The provider has reviewed the documentation as recorded by the Scribjennifer Maloney All medical record entries made by the Scribe were at my direction and personally dictated by me. I have reviewed the chart and agree that the record accurately reflects my personal performance of the history, physical exam, medical decision making, and the department course for this patient. I have also personally directed, reviewed, and agree with the discharge instructions and disposition.
[2019-02-03 01:00] VITALS: BP 107/73; PULSE 61; RESP 18; TEMP 97.7
[2019-02-03 04:59] VITALS: O2SAT 99
--- NOTE | 2019-02-03 09:02 | CT ---
Date of service: 02/02/2019 PROCEDURE: CT Abdomen and Pelvis with contrast HISTORY: Right lower quadrant abdominal pain COMPARISON: None. TECHNIQUE: Multiple contiguous axial images were performed through the abdomen and pelvis with the use of intravenous contrast. Subsequently, sagittal and coronal reformatted images were obtained. Radiation dose: Total exam DLP = 1070.83 mGy-cm. This CT exam was performed using one or more of the following dose reduction techniques: Automated exposure control, adjustment of the mA and/or kV according to patient size, and/or use of iterative reconstruction technique. FINDINGS: LOWER THORAX: Mild atelectasis at the lung bases. LIVER: Prominent liver with mild fatty infiltration. GALLBLADDER AND BILE DUCTS: Cholelithiasis with prominent calculus measuring up to 2.3 centimeters. PANCREAS: Unremarkable. No gross lesion or ductal dilatation. SPLEEN: Prominent spleen. ADRENALS: Unremarkable. No mass. KIDNEYS AND URETERS: Unremarkable. No hydronephrosis. No solid mass. VASCULATURE: Unremarkable. No aortic aneurysm. No aortic atherosclerotic calcification or mural plaque present. BOWEL: Few thickened and distended loops of small bowel in the upper abdomen which may represent an enteritis. APPENDIX: Normal appendix. PERITONEUM: Unremarkable. No free fluid. No free air. LYMPH NODES: Few shotty lymph nodes in the abdominal mesentery which may represent a mild mesenteric adenitis. BLADDER: Unremarkable. REPRODUCTIVE: Intrauterine device in place. BONES: No acute fracture. OTHER FINDINGS: None. IMPRESSION: Cholelithiasis with prominent calculus measuring up to 2.3 centimeters. Prominent liver with fatty infiltration. Prominent spleen. Intrauterine device in place. Few distended loops of small bowel seen within the upper abdomen which may represent an enteritis. Clinical correlation. Few shotty mesenteric lymph nodes which may represent a mild mesenteric adenitis. Clinical correlation. A preliminary report was generated at 12:11 a.m. on 02/03/[address] Aiden Braun from [employer].
== END 2019-02-03 01:01 | disposition home or self-care (01) ==
LOC: C.ER 21:34
DX: K52.9 Noninfective gastroenteritis and colitis, unspecified (principal); K80.20 Calculus of gallbladder without cholecystitis without obstruction; R10.31 Right lower quadrant pain
CPT/HCPCS: 74177; 80053; 81001; 82948; 84703; 85025; 96361; 96374; 96375; 99285; J1885; J2405; J7030; Q9967